=== PATIENT | male | born 1945 | race Caucasian/White ===

== ENCOUNTER 2022-01-29 08:59 | Outpatient (CLI) | payer MEDICARE, SELFPAY ==
--- NOTE | ~2022-01-29 | MR_ITS ---
EXAMINATION: MR lumbar spine wo con DATE: 01/29/2022 10:06 INDICATION: Dorsalgia, unspecified. TECHNIQUE: Magnetic resonance imaging (MRI) of the lumbar spine was performed without intravenous con trast. Sequences included sagittal T2-weighted FSE, sagittal T2-weighted FS FSE, sagittal T1-weighted FSE, and axial T2-weighted FSE. COMPARISON: Lumbar spine MRI 07/13/2019 FINDINGS: There is 17 degrees dextroscoliosis of lumbar spine. There is 11 mm retrolisthesis of L1 on L2, 7 mm retrolisthesis of L2 on L3, 7 mm retrolisthesis of L4 on L5, and 3 mm anterolisthesis of L5 on S1. There is severely decreased disc height at L1-L2 with endplate remodeling including 1/5 heigh t loss of L1 and L2 vertebral bodies. There is moderately decreased disc height at L2-L3, mildly decr eased disc height at L3-L4 and L4-L5, and severely decreased disc height at L5-S1 with endplate remod eling. The distal spinal cord signal intensity is normal. The conus medullaris is at L1. The followin g disc levels are specifically discussed: L1-L2: The disc is bulging and has an annular fissure. There is severe right facet joint osteoarthrit is. There is moderate right and severe left neural foraminal stenosis. There is mild central canal st enosis. There are changes of posterior decompression. L2-L3: The disc is bulging and has an annular fissure. There is severe bilateral facet joint osteoart hritis. There is moderate bilateral neural foraminal stenosis. There is moderate central canal stenos is. L3-L4: The disc is bulging and has an annular fissure. There is severe bilateral facet joint osteoart hritis. There is moderate bilateral neural foraminal stenosis. There is mild central canal stenosis. L4-L5: The disc is bulging and has an annular fissure. There is severe bilateral facet joint osteoart hritis. There is moderate bilateral neural foraminal stenosis. There is mild central canal stenosis. L5-S1: The disc is bulging and has an annular fissure. There is severe right and moderate left facet joint osteoarthritis. There is moderate right and mild left neural foraminal stenosis. There is mild central canal stenosis with posterior decompression. IMPRESSION: 1. Severe lumbar spondylosis, worsened from 07/13/2019. 2. Lumbar dextroscoliosis. Reviewed, dictated and finalized at location B.
== END 2022-01-29 09:00 | disposition home or self-care (01) ==
PROVIDERS: PCP Physician Assistant; Visit Provider Physician Assistant
DX: M47.896 Other spondylosis, lumbar region (principal)
CPT/HCPCS: 72148

== ENCOUNTER 2022-05-20 13:59 | Outpatient (CLI) | payer MEDICARE, SELFPAY ==
--- NOTE | ~2022-05-20 | CT_ITS ---
EXAMINATION: CT lumbar spine wo con DATE: 05/20/2022 14:31 INDICATION: Low back pain. Lumbar scoliosis. TECHNIQUE: Computed tomography (CT) of the lumbar spine was performed without intravenous contrast. A utomated exposure control and iterative reconstruction technique were employed. The dose-length produ ct was 550.56 mGy-cm. COMPARISON: CT lumbar spine 07/19/2018, MRI 01/29/2022 FINDINGS: Partially visualized are stones in the kidneys measuring up to at least 6 mm on the left. T here is 14 degrees dextroscoliosis of lumbar spine. There is 10 mm retrolisthesis of L1 on L2, 6 mm r etrolisthesis of L2 on L3, 8 mm anterolisthesis of L4 on L5, and 3 mm anterolisthesis of L5 on S1. Th ere is severely decreased disc height at L1-L2, L2-L3, and L5-S1 with endplate remodeling and mild ch ronic height loss of the vertebral bodies. There is mildly decreased disc height at L3-L4 and L4-L5. There are laminectomies at L1, L2, and L5. The following disc levels are specifically discussed: L1-L2: The disc is bulging. There is severe bilateral facet joint osteoarthritis. There is moderate r ight and severe left neural foraminal stenosis. There is mild central canal stenosis with posterior d ecompression. L2-L3: The disc is bulging. There is severe bilateral facet joint osteoarthritis. There is moderate b ilateral neural foraminal stenosis. There is mild central canal stenosis with posterior decompression . L3-L4: The disc is bulging. There is severe bilateral facet joint osteoarthritis. There is moderate b ilateral neural foraminal stenosis. There is mild central canal stenosis. L4-L5: The disc is bulging. There is severe bilateral facet joint osteoarthritis. There is moderate b ilateral neural foraminal stenosis. There is mild central canal stenosis with posterior decompression . L5-S1: The disc is bulging. There is severe right and moderate left facet joint osteoarthritis. There is moderate right and mild left neural foraminal stenosis. There is mild central canal stenosis with posterior decompression. IMPRESSION: 1. Severe lumbar spondylosis, stable from 01/29/2022 and worsened from 07/19/2018. 2. Lumbar dextroscoliosis. Reviewed, dictated and finalized at location A. IMPRESSION: 1. Severe lumbar spondylosis, stable from 01/29/2022 and worsened from 07/19/2018 . 2. Lumbar dextroscoliosis.
== END 2022-05-20 14:00 | disposition home or self-care (01) ==
PROVIDERS: PCP Physician Assistant; Visit Provider Neurological Surgery
DX: M41.9 Scoliosis, unspecified (principal); M47.896 Other spondylosis, lumbar region
CPT/HCPCS: 72131

== ENCOUNTER 2022-06-26 07:10 | Outpatient (CLI) | payer MEDICARE, SELFPAY ==
--- NOTE | ~2022-06-26 | MR_ITS ---
EXAMINATION: MR cervical spine wo con DATE: 06/26/2022 08:19 INDICATION: Weakness of the distal arms and legs TECHNIQUE: Magnetic resonance imaging (MRI) of the cervical spine was performed without intravenous c ontrast. Sequences included sagittal T2-weighted FSE, sagittal T2-weighted FS FSE, sagittal T1-weight ed FSE, axial MERGE and axial T2-weighted FSE. COMPARISON: None FINDINGS: Evaluation mildly limited by motion artifact or blurring to some degree on all sequences within sever al repeated axial sequences. One-2 mm retrolisthesis C3 on C4. Bone alignment is otherwise normal. V ertebral body heights are normal. Moderate to severe disc height loss at C4-C5 and T2-T3. Moderate di sc height loss at C3-C4, C5-C6 and T1-T2. Mild disc height loss at C2-C3 and C6-C7. Associated mild f ibrovascular degenerative endplate changes at C4-C5 and C5-C6. Marrow signal is otherwise unremarkabl e. Cord signal intensity is normal. Cervical soft tissues are unremarkable. The following disc levels are specifically discussed: C2-C3: The disc does not extend beyond the endplate margin. There is mild bilateral uncovertebral riya nt osteoarthritis. There is mild right and moderate left facet joint osteoarthritis. There is mild le ft neural foraminal stenosis. There is no central canal stenosis. C3-C4: Disc is bulging. There is severe bilateral uncovertebral joint osteoarthritis. There is modera te left and severe right facet joint osteoarthritis. There is moderate to severe right and severe lef t neural foraminal stenosis. There is severe central canal stenosis measuring 7 mm AP in the mid sagi ttal plane and deformity cord with effacement of the surrounding CSF signal. C4-C5: Right central to foraminal zone disc extrusion with disc material extending cranial and caudal to the level of the endplates. There is moderate left and severe right uncovertebral joint osteoarth ritis. There is moderate left and severe right facet joint osteoarthritis. There is moderate to sever e bilateral neural foraminal stenosis. There is moderate to severe central canal stenosis which measu res 8 mm AP in the mid sagittal plane. There is indentation of the ventral surface of the cord with r ight-sided predominance. C5-C6: Eccentric to the left posterior disc osteophyte complex. There is severe bilateral uncovertebr al joint osteoarthritis. There is mild right and moderate left facet joint osteoarthritis. There is m oderate right and moderate to severe left neural foraminal stenosis. There is mild central canal sten osis measuring 10 mm AP in the mid sagittal plane and with mild indention of the left ventral surface of the cord. C6-C7: Annular fissure and disc extrusion with disc material extending a few millimeters cephalad and caudal to the level of the endplates extending from foraminal zone to foraminal zone. There is moder ate bilateral, left greater than right uncovertebral joint osteoarthritis. There is severe bilateral facet joint osteoarthritis. There is moderate bilateral neural foraminal stenosis. There is mild cent ral canal stenosis. C7-T1: The disc does not extend beyond the endplate margin. There is no uncovertebral joint osteoarth ritis. There is moderate right and severe left facet joint osteoarthritis. There is mild bilateral ne ural foraminal stenosis. There is no central canal stenosis. IMPRESSION: 1. Severe cervical spondylosis. Reviewed, dictated and finalized at location B.
== END 2022-06-26 07:11 | disposition home or self-care (01) ==
PROVIDERS: PCP Physician Assistant; Visit Provider Neurological Surgery
DX: R29.898 Other symptoms and signs involving the musculoskeletal system (principal); M47.892 Other spondylosis, cervical region
CPT/HCPCS: 72141

== ENCOUNTER 2022-09-17 11:33 | Observation (INO) | payer MEDICARE, SELFPAY ==
[2022-09-17] VITALS (13 sets, daily range): BP systolic 87–137; BP diastolic 53–68; PULSE 63–148; RESP 15–22; TEMP 36.3–36.4; O2SAT 95–100; BMI 26.1
--- NOTE | ~2022-09-17 | XR_ITS ---
Supine views of the abdomen Clinical history: Fecal impaction Findings: Bowel gas pattern is nonspecific. Large amount of stool noted in the distal transverse colo n, descending colon, and sigmoid colon/rectum. No evidence for obstruction or free air. No abnormal m ass lesion or calcification is seen. Mild degenerative changes in the lumbar spine are noted. Severe osteoarthritis of the left hip joint present. Impression: Large amount of stool in the distal half of the colon, as detailed above. Reviewed, dictated and finalized at location M. L MARKETING INTERN Impression: Large amount of stool in the distal half of the colon, as detailed above.
--- NOTE | ~2022-09-17 | XR_ITS ---
EXAMINATION: XR abdomen/kub 1V DATE: 09/19/2022 13:17 INDICATION: Small bowel obstruction. TECHNIQUE: A supine view of the abdomen was obtained. COMPARISON: CT abdomen and pelvis 09/17/2022 FINDINGS: There are no dilated loops of bowel. There is a small volume of stool in the colon. There a re stones in right kidney measuring up to 5 mm. There are stones in left kidney measuring up to 8 mm. IMPRESSION: 1. Nonobstructive bowel gas pattern. 2. Bilateral kidney stones. Reviewed, dictated and finalized at location A. ARY AIDE
--- NOTE | ~2022-09-17 | US_ITS ---
EXAMINATION: US venous doppler [facility] DATE: 09/18/2022 10:28 INDICATION: Lower limb edema. Left lower limb pain. TECHNIQUE: Grayscale ultrasound images without and with compression and Doppler ultrasound images of the bilateral lower extremity veins were obtained. COMPARISON: None. FINDINGS: The visualized portions of right common femoral vein, profunda (deep) femoral vein, femoral vein, pop liteal vein, peroneal veins, posterior tibial veins, and greater saphenous vein outflow are patent. The visualized portions of left common femoral vein, profunda femoral vein, femoral vein, popliteal v ein, peroneal veins, posterior tibial veins, and greater saphenous vein outflow are patent. IMPRESSION: 1. No deep venous thrombosis. Reviewed, dictated and finalized at location A. F MECHANICAL OFFICER
--- NOTE | ~2022-09-17 | CT_ITS ---
EXAMINATION: CT abdomen pelvis w con DATE: 09/17/2022 14:32 INDICATION: Diarrhea. Nausea and vomiting. TECHNIQUE: Computed tomography (CT) of the abdomen and pelvis was performed with 100 mL Omnipaque 350 intravenous contrast. Automated exposure control and iterative reconstruction technique were employe d. The dose-length product was 681.33 mGy-cm. COMPARISON: CT abdomen and pelvis 09/14/2019 FINDINGS: The visualized portions of the lung bases demonstrate mild atelectasis. There is mild eleva tion of right hemidiaphragm. Calcified pulmonary nodules and calcified hilar and mediastinal lymph no prachi are consistent with old granulomatous disease. No pleural effusion. The heart size is normal. The re are coronary artery calcifications. No pericardial effusion. The liver is normal. Calcifications i n the spleen are consistent with old granulomatous disease. There are gallstones in the gallbladder, which is distended. The pancreas and adrenal glands are normal. There is cortical thinning of the kid neys. There are 4 stones in right kidney measuring up to 7 mm. There are 6 stones in left kidney alex uring up to 8 mm. There are cysts in left kidney measuring up to 5 mm. Stool distends the rectum. The re is a large volume of stool in the colon. The appendix is normal. The prostate is moderately enlarg ed. There are no pathologically enlarged lymph nodes. There is no free intraperitoneal fluid. There i s moderate stenosis of celiac axis and superior mesenteric artery. There is moderate stenosis of the origin of inferior mesenteric artery. There is severe lumbar spondylosis. Lumbar dextroscoliosis is n oted. There is severe osteoarthritis of the hips. There is a large left hip joint effusion with iliop soas bursitis. IMPRESSION: 1. Cholelithiasis. Gallbladder distention may be secondary to fasting or acute cholecystitis. Correla te with physical exam. 2. Large volume of stool in the colon with distention of the rectum. Reviewed, dictated and finalized at location A. CTOR OF OUTPATIENT SERVICES IMPRESSION: 1. Cholelithiasis. Gallbladder distention may be secondary to fasting or acute cholecystitis. Correlate with physical exam. 2. Large volume of stool in the colon with distention of the rectum.
--- NOTE | 2022-09-17 11:53 | ECG_ITS ---
Measurements Intervals [place] Rate: 119 P: ID: 0 QRS: -3 QRSD: 113 T: 17 QT: 321 QTc: 452 Interpretive Statements SUPRAVENTRICULAR TACHYCARDIA INCOMPLETE LEFT BUNDLE BRANCH BLOCK ABNORMAL ECG NO PREVIOUS ECG AVAILABLE FOR COMPARISON Electronically Signed On 09-17-2022 12:11:30 AUTOMOBILE BODY REPAIR SUPERVISOR by Jasbir Flores D.O.
--- NOTE | 2022-09-17 12:02 | ED.NAVMDI ---
HPI - Nausea/Vomiting/Diarrhea General Chief complaint: Nausea/Vomiting/Diarrhea Stated complaint: back pain with diarrhea Time Seen by Provider: 09/17/22 12:02 Source: patient Mode of arrival: EMS Limitations: dementia History of Present Illness HPI Narrative: Patient is a 77-year-old male with a history of Alzheimer's dementia, hypertension, hyperlipidemia, presenting to the emergency department for evaluation of generalized weakness, diarrhea. Patient is currently alert and oriented to person and place. He denies any current pain. Patient states that he has been having numerous episodes of watery stools. Family does also provide much of the history, I spoke personally with the patient's significant other and daughter. Patient has had increasing weakness over the past several weeks and patient's daughter has been looking for long-term placement for him as he is not safe living with his girlfriend at this point. He has had falls recently at home but no noted head trauma. Patient has had no reported headache, nausea or vomiting. No reported abdominal pain but did report back pain. He has had multiple episodes of watery stool and girlfriend felt like there was blood present in the stool today. He is not on any chronic anticoagulation. No recent sick contacts. Patient family members also states that he has been increasingly weak, sleeping multiple hours in the day, decreased oral intake. Related Data Home Medications Medication Instructions Recorded Confirmed aspirin 81 mg tablet,delayed 81 mg PO DAILY 09/20/19 08/11/22 release (Adult Low Dose Aspirin) oxybutynin chloride 5 mg mg PO 09/17/22 tablet,extended release 24 hr tamsulosin 0.4 mg capsule mg PO 09/17/22 Allergies Allergy/AdvReac Type Severity Reaction Status Date / Time codeine AdvReac Unknown Nausea Verified 09/17/22 11:47 Review of Systems Review of Systems: CONSTITUTIONAL: Denies fever, chills, or sweats. EYES: Denies visual changes, redness, or discharge. ENT: Denies rhinorrhea, congestion, sore throat, or otalgia. CARDIOVASCULAR: Denies chest pain, palpitations, or edema. RESPIRATORY: Denies cough or dyspnea. GASTROINTESTINAL: Denies abdominal pain, nausea, vomiting, reports diarrhea GENITOURINARY: Denies dysuria or hematuria. SKIN: Denies rash or itching. MUSCULOSKELETAL: Reports back pain, reports this is chronic for him NEUROLOGIC: Denies headache, numbness, reports generalized weakness PMFSH Past Medical History Medical History Acute kidney injury COPD (chronic obstructive pulmonary disease) Hyperlipidemia Hypertension Kidney stone Lumbar scoliosis Osteoarthritis Prostate cancer Currently under surveillance. Prostate cancer Restless leg syndrome Sepsis Tobacco dependence Surgical History Surgical History History of orthopedic surgery Bilateral elbow surgery. Status post left knee replacement Family History Family History Father Cerebrovascular accident Family history of coronary artery disease Alcoholism Mother Family history of coronary artery disease Sibling Diabetes mellitus Other Family history of cardiovascular disease Social History Social History Social History: The patient lives in [place]. He has smoked 1 to 2 packs of cigarettes per day since age of 7. He denies alcohol and drug abuse. His emergency contact is his daughter Roxy Adams. He wishes to be a full code. Smoking packs per day: 2 Smoking cigarettes per day: 40.0 Years smoked: 65 Smoking pack-years: 130.00 Smoking status: Current every day smoker Tobacco type: cigarettes Second hand tobacco smoke exposure: Yes Alcohol intake: never Substance use: never Lack of Transportation: No Lack of Food: [facility]
[2022-09-17 12:23] LABS: Add Urine Microscopic? YES; Appearance Urine Clear (Clear); Bilirubin Urine Negative (Negative); Blood Urine Trace-Intact (Negative); Color Urine Yellow (Yellow); Glucose Urine UA Negative (Negative); Ketones Urine Negative (Negative); Leukocyte Esterase Ur Negative LEU/UL (Negative); Nitrate Urine Negative (Negative); Protein Urine 1+ mg/dL (Negative); Specific Grav Ur 1.015 (1.001-1.035); Urobilinogen Urine 0.2 mg/dL (<2.0)
[2022-09-17 12:39] LABS: Mucus Urine Rare /lpf; Squamous Epithelial Cell Urine Rare /hpf (Few); WBC Urine 0-3 /hpf
[2022-09-17] MEDS: SODIUM CHLORIDE 0.9% IV 1,000 ML 999 ML IV CONT ×2 (12:55)
--- NOTE | 2022-09-17 13:02 | ECG_ITS ---
Measurements Intervals [place] Rate: 63 P: 63 [place]: 204 QRS: 11 QRSD: 97 T: 37 QT: 400 QTc: 410 Interpretive Statements SINUS RHYTHM BORDERLINE AV CONDUCTION DELAY BORDERLINE ECG COMPARED TO ECG 09/17/2022 11:57:35 SINUS RHYTHM NOW PRESENT Electronically Signed On 09-17-2022 13:46:14 AUTOCAD DESIGNER by Jasbir Flores D.O.
[2022-09-17 13:08] LABS: Basophils Percent Auto 0.4 % (0.2-1.2); Eosinophils Percent Auto 0.2 % (0-4.4); Hematocrit 35.8 % (42.0-52.0); Immature Granulocyte Absolute 0.03 K/mm3 (0.00-0.031); Immature Granulocyte Percent A 0.4 % (0-0.5); Lymphocytes Absolute Auto 0.75 K/mm3 (0.9-3.2); Mean Corpuscular HGB Conc 33.5 g/dl (32-36); Mean Corpuscular Hemoglobin 33.5 pg (26-34); Mean Platelet Volume 8.4 fl (7.4-10.4); Monocytes Absolute Auto 0.7 K/mm3 (0.1-0.6); Neutrophils Absolute Auto 6.9 K/mm3 (1.3-6.7); Platelet Count Result 168 k/mm3 (150-375); Red Blood Count 3.58 M/mm3 (4.6-6.20); Red Cell Distribution Width 11.7 % (11.5-14.5); White Blood Count 8.4 K/mm3 (4.5-10.0)
[2022-09-17 13:21] LABS: Alanine Aminotransferase 19 U/L (6-50); Albumin Level 3.9 g/dL (3.5-5.1); Alkaline Phosphatase 86 U/L (38-126); Anion Gap 5 mmol/L (8-16); Aspartate Amino Transferase 24 U/L (17-59); Bilirubin,Total 0.5 mg/dL (0.2-1.3); Blood Urea Nitrogen 29 mg/dL (9-20); Calcium 8.9 mg/dL (8.4-10.2); Carbon Dioxide 27 mmol/L (22-30); Chloride 101 mmol/L (98-107); Estimated CRCL calculation 41 ml/min; Estimated Glomerular Filt Rate 49; Glucose 110 mg/dL (65-110); Lipase 40 U/L (23-300); Potassium 4.1 mmol/L (3.4-5.0); Sodium 133 mmol/L (137-145)
[2022-09-17 13:26] LABS: Lactic Acid Reflex 1.1 mmol/L (0.7-2.0)
[2022-09-17 13:38] LABS: Troponin I < 0.012 ng/mL (0.000-0.034)
[2022-09-17 13:49] LABS: Influenza A QL RT-PCR Negative (Negative); Influenza B QL RT-PCR Negative (Negative); RSV RNA, RT-PCR Negative (Negative); SARS-CoV-2 RNA PCR Negative
[2022-09-17 14:17] LABS: INR 1.2; Prothrombin Time 14.3 Seconds (11.1-14.7)
[2022-09-17 14:18] LABS: Partial Thromboplastin Time 34.3 SECONDS (22.3-36.8)
--- NOTE | 2022-09-17 15:00 | PM.IMHP ---
H&P: HPI History of Present Illness Date/Time: 09/17/22 15:00 Chief Complaint: Weakness and diarrhea. Narrative: This 77-year-old male smoker with dementia, hypertension, COPD, prostate cancer, and chronic back and left hip pain who presented to the emergency department from home for evaluation of weakness and diarrhea. He is able to provide some history however his significant other and daughter at bedside provide additional information, with the patient's permission. He has had ongoing issues with chronic left back pain radiating into the left hip and upper thigh for quite some time. He has been evaluated by neuro surgery and due to his comorbidities they did not feel he would be a good candidate for surgery. More recently he has been started on hydrocodone by his primary care provider which seems to take the edge off for a couple of hours only. He and his family members report that he is in nearly constant pain and that he has gotten progressively more weak to the point where he can barely even get up and walk. Significant other states that he is in bed almost all the time and is either sleeping or in pain. He has difficulties describing the pain but when it is particularly severe it is sharp and shooting in nature and seems to be centered on the left lateral hip. In any event his significant other has been his primary spring former machine and it is getting to the point that she is neglecting her own health and they are worried that he may need placement in a facility. Today they decided to bring him in as he started having diarrhea at about 05:00 and significant other noticed that there was some bright red blood on the shower chair after the bowel movements. He denies lightheadedness, dizziness, focal weakness, paresthesias, vertigo, facial droop, difficulty swallowing and speaking, chest pain, pleuritic pain, shortness a breath, abdominal on epigastric pain, vomiting, and dysuria. No saddle anaesthesia. Blood pressure on arrival to the emergency department was 93/53 but has improved with IV fluid boluses. It is also noted that his heart rate was 148 on arrival and it looks like he was in SVT but converted to sinus after receiving fluid boluses. It does not sound as though he has been eating and drinking very well due to the pain and sleeping from the pain medications. He looks a little dry by labs and on exam. Hemoglobin is little over gram lower than what it was within the last several months. CT of the abdomen pelvis showed a large volume of stool in the colon with distention of the rectum. With further questioning he reports that he takes stool softeners at night but they have never really helped. They have not tried any other medications to move his bowels. Review of Systems Review of Systems: Negative except for as per HPI. [facility] Past Medical History Medical History Chronic kidney disease Chronic obstructive pulmonary disease Dementia Hyperlipidemia Hypertension Kidney stone Lumbar scoliosis Osteoarthritis Prostate cancer Currently under surveillance. Restless leg syndrome Tobacco dependence Surgical History Surgical History History of orthopedic surgery Bilateral elbow surgery. Status post left knee replacement Family History Family History Father Cerebrovascular accident Family history of coronary artery disease Alcoholism Mother Family history of coronary artery disease Sibling Diabetes mellitus Other Family history of cardiovascular disease Social History Social History Social History: The patient lives in [place]. He has smoked 1 to 2 packs of cigarettes per day since age of 7. He denies alcohol and drug abuse. His emergency contact is his daughter Roxy Adams. He wishes to be a full cod
[2022-09-17 16:41] LABS: Troponin I < 0.012 ng/mL (0.000-0.034)
[2022-09-17] MEDS: PANTOPRAZOLE SODIUM IV 40 MG VIAL IV PUSH (16:41)
--- NOTE | 2022-09-17 17:45 | ADMGEN ---
This patient, Andrew Starr, was admitted to Medical Room 348-01. Patient/family oriented to hospital policies and general routines including ID bracelet, bed and alarms, visiting hours, pain management, procedures, bathroom and other care routines, personal items, smoking policy, room service/diet, and visiting hours. Information on how to activate the Rapid Response Team has been discussed. Patient/Family are encouraged to report perceived risks to care and to ask questions if they do not understand what they are told or what they should do.
[2022-09-17] MEDS: LACTATED RINGERS 1,000 ML 125 ML IV CONT (17:47)
[2022-09-17] MEDS: ACETAMINOPHEN 325 MG TABLET 650 MG PO (17:48)
[2022-09-17] MEDS: ONDANSETRON INJ 4 MG/2 ML VIAL IV PUSH (20:22)
[2022-09-17] MEDS: clonazePAM (*CRX) 0.5 MG TABLET 1 MG PO (21:38)
[2022-09-17] MEDS: HYDROcodone/acetaminophen (*CRX) 10-325 MG TABLET 1 TAB PO (21:39)
[2022-09-17 21:49] LABS: Troponin I < 0.012 ng/mL (0.000-0.034)
[2022-09-17 23:02] LABS: Hematocrit 31.6 % (42.0-52.0); Hemoglobin 10.7 g/dL (14.0-18.0)
[2022-09-17 23:20] LABS: CRP 1.2 mg/dL (<1.0); Creatine Kinase 71 U/L (55-170)
[2022-09-17] MEDS: PRAMIPEXOLE 0.25 MG TABLET PO (23:30)
[2022-09-17] MEDS: TAMSULOSIN HCL 0.4 MG CAPSULE PO (23:30)
[2022-09-18] VITALS (12 sets, daily range): BP systolic 109–153; BP diastolic 51–72; PULSE 54–74; RESP 18–20; TEMP 36.5–36.6; O2SAT 96–97; BMI 26.1
[2022-09-18] MEDS: HYDROcodone/acetaminophen (*CRX) 10-325 MG TABLET 1 TAB PO ×4 (03:54→23:04)
[2022-09-18 05:46] LABS: Hematocrit 31.1 % (42.0-52.0); Hemoglobin 10.4 g/dL (14.0-18.0); Mean Corpuscular HGB Conc 33.4 g/dl (32-36); Mean Corpuscular Hemoglobin 33.5 pg (26-34); Mean Corpuscular Volume 100.3 fl (80-100); Mean Platelet Volume 8.4 fl (7.4-10.4); Platelet Count Result 125 k/mm3 (150-375); Red Cell Distribution Width 11.8 % (11.5-14.5); White Blood Count 5.8 K/mm3 (4.5-10.0)
[2022-09-18 05:56] LABS: Potassium 4.1 mmol/L (3.4-5.0)
[2022-09-18 06:00] LABS: Alanine Aminotransferase 16 U/L (6-50); Alkaline Phosphatase 71 U/L (38-126); Anion Gap 0 mmol/L (8-16); Aspartate Amino Transferase 19 U/L (17-59); Bilirubin,Total 0.4 mg/dL (0.2-1.3); Blood Urea Nitrogen 22 mg/dL (9-20); Calcium 8.1 mg/dL (8.4-10.2); Carbon Dioxide 28 mmol/L (22-30); Chloride 102 mmol/L (98-107); Estimated CRCL calculation 44 ml/min; Estimated Glomerular Filt Rate 53; Glucose 87 mg/dL (65-110); Magnesium 1.9 mg/dL (1.6-2.3); Sodium 130 mmol/L (137-145)
[2022-09-18] MEDS: LACTATED RINGERS 1,000 ML 125 ML IV CONT ×2 (08:12→23:06)
[2022-09-18] MEDS: DOCUSATE SODIUM 100 MG CAPSULE PO (08:20)
[2022-09-18] MEDS: polyethylene glycoL 3350 17 GM POWD.PACK PO (08:20)
[2022-09-18] MEDS: LIDOCAINE 5% PATCH 1 PATCH TRANSDERM (08:20)
[2022-09-18] MEDS: BISACODYL 5 MG TABLET EC 10 MG PO ×2 (08:20→17:10)
[2022-09-18] MEDS: CITALOPRAM HYDROBROMIDE 10 MG TABLET PO (08:20)
--- NOTE | 2022-09-18 09:25 | WPDGICN ---
Assessment and Plan Assessment and plan (1) Diarrhea: Code(s): R19.7 - Diarrhea, unspecified Status: Acute Assessment and Plan: Although he has been having diarrhea, judging by the CT scan, I suspect that he is having incontinence due to fecal impaction. I have ordered stool cultures but I suspect they will be negative. We will add Dulcolax to his regimen of stool softeners. He I will recheck KUB in the morning. If he has not had improvement we may need to consider removal of impaction under sedation. (2) Dehydration: Code(s): E86.0 - Dehydration Status: Acute Assessment and Plan: There is concern about dehydration. His urine specific gravity is 1.015 BUN is 22, which is actually improved over a couple of years ago when he was in the 40s. GI Consult Note Consult date/time: 09/18/22 09:25 HPI: Andrew Starr is a 77 year old male Was brought to the emergency room by his family. He has been having a great deal of diarrhea stools for the past couple of days. The patient's family also stated that he had been weak. Patient self is a poor historian. There was no evidence of bleeding but he did have a positive stool Hemoccult in the emergency room. He had not recently been on antibiotics. CT scan actually shows a large amount of stool in the colon and rectum. Review of Systems Review of Systems: All systems reviewed & are unremarkable except as noted in HPI and below PMFSH Past Medical History Medical History Chronic kidney disease Chronic obstructive pulmonary disease Dementia Hyperlipidemia Hypertension Kidney stone Lumbar scoliosis Osteoarthritis Prostate cancer Currently under surveillance. Restless leg syndrome Tobacco dependence Surgical History Surgical History History of orthopedic surgery Bilateral elbow surgery. Status post left knee replacement Family History Family History Father Cerebrovascular accident Family history of coronary artery disease Alcoholism Mother Family history of coronary artery disease Sibling Diabetes mellitus Other Family history of cardiovascular disease Social History Social History Social History: The patient lives in [place]. He has smoked 1 to 2 packs of cigarettes per day since age of 7. He denies alcohol and drug abuse. His emergency contact is his daughter Roxy Adams. He wishes to be a full code. Smoking packs per day: 2 Smoking cigarettes per day: 40.0 Years smoked: 65 Smoking pack-years: 130.00 Smoking status: Current every day smoker Tobacco type: cigarettes Second hand tobacco smoke exposure: Yes Alcohol intake: never Substance use: never Lack of Transportation: No Lack of Food: Never True Current Housing: I Have Housing Concerned About Future Housing: No Difficulty Paying Gas/Electric Bills: No Difficulty Paying for Meds: No Currently Unemployed: No Education: High School Diploma/GED Difficulty w/ Childcare or Family Care: No Spiritual care concerns: No Meds Home Medications and Allergies Home Medications Medication Instructions Recorded Confirmed Type aspirin 81 mg tablet,delayed 81 mg PO DAILY 09/20/19 09/17/22 History release (Adult Low Dose Aspirin) atorvastatin 20 mg tablet (Lipitor) 20 mg PO QAM #90 tabs 10/04/21 09/17/22 Rx lisinopril 20 1 tablet PO DAILY #90 tabs 01/03/22 09/17/22 Rx mg-hydrochlorothiazide 12.5 mg tablet citalopram 10 mg tablet 10 mg PO DAILY #30 tabs 06/30/22 09/17/22 Rx hydrocodone 10 mg-acetaminophen 1 tablet PO Q6H PRN pain #120 tabs 08/11/22 09/17/22 Rx 325 mg tablet amlodipine 10 mg tablet 10 mg PO DAILY #90 tabs 08/13/22 09/17/22 Rx pramipexole 0.25 mg tablet 0.25 mg PO QHS #90 tab
--- NOTE | 2022-09-18 12:58 | PC.NURSE ---
Pt does not wish to be intubated. ok with it. Second nurse confirmed changes.
--- NOTE | 2022-09-18 15:54 | PM.IMPN ---
Progress Note: A&P Assessment and Plan (1) Paroxysmal supraventricular tachycardia: Code(s): I47.1 - Supraventricular tachycardia Status: Acute (2) Hypotension: Code(s): I95.9 - Hypotension, unspecified Status: Acute (3) Constipation: Code(s): K59.00 - Constipation, unspecified Status: Acute (4) Overflow diarrhea: Code(s): R19.7 - Diarrhea, unspecified Status: Acute (5) Guaiac + stool: Code(s): R19.5 - Other fecal abnormalities Status: Acute (6) Chronic low back pain: Code(s): M54.50 - Low back pain, unspecified; G89.29 - Other chronic pain Status: Acute (7) Chronic left hip pain: Code(s): M25.552 - Pain in left hip; G89.29 - Other chronic pain Status: Acute (8) Generalized weakness: Code(s): R53.1 - Weakness Status: Acute (9) Dehydration: Code(s): E86.0 - Dehydration Status: Acute (10) Hyponatremia: Code(s): E87.1 - Hypo-osmolality and hyponatremia Status: Acute (11) Chronic kidney disease: Code(s): N18.9 - Chronic kidney disease, unspecified Status: Acute (12) Chronic obstructive pulmonary disease: Code(s): J44.9 - Chronic obstructive pulmonary disease, unspecified Status: Acute (13) Dementia: Code(s): F03.90 - Unspecified dementia, unspecified severity, without behavioral disturbance, psychotic disturbance, mood disturbance, and anxiety Status: Acute (14) Tobacco abuse: Code(s): Z72.0 - Tobacco use Status: Acute Plan The patient presented to the ED via EMS from home for evaluation of diarrhea and weakness. On arrival his blood pressure was 93/53 and he was he was tachycardic with an EKG showing SVT with a rate in the 140s. He was given fluid boluses with improvement in his blood pressure and buddhism of sinus rhythm. He is dry on exam and labs show mild hyponatremia; he will be judiciously hydrated overnight. His diarrhea today's most likely overflow diarrhea given a large volume of stool noted in the colon with distension of the rectum. He has some blood in his stool this morning and the stool was guaiac positive in the ED, may very well be due to hemorrhoids from ongoing constipation. Constipation has been worse recently, likely due to the addition of narcotics. Continue stool softeners and start MiraLax. His hemoglobin and hematocrit are a bit lower than what he typically runs and that will be repeated this evening to ensure it is stable. Antihypertensives on hold for now given low blood pressures on arrival. Continue pramipexole, citalopram, and hydrocodone as needed for pain. Consider other modalities to help with pain such as therapy, topicals, anti-inflammatories, or gabapentin or the like. PT/OT consulted as he is weak and is to the point where he is having difficulties even getting up out of bed. This weakness does not seem to be an acute onset and is more likely related to progressive weakness and debility as he is limited by his pain. Care coordination consulted as family members feel that he needs placement due to the fact that they are having difficulties caring for him at home. His home medications will be reviewed and resumed as appropriate. Labs, imaging, vital signs, an EKG were all personally reviewed. 09/18/2022 interval history: 77-year-old male was brought to the emergency with weakness and loose bowel movement however CT scan of abdomen showed fecal impaction seen by GI started the patient on stool softener and will monitor there is no improvement will do KUB and may need Dulcolax suppository, patient's presented state patient is a very weak, difficult time with ambulation will have a PT OT evaluate the patient patient will benefit going to acute rehab. Subjective Date/time seen: 09/18/22 15:54 HPI-Narrative: This 77-year-old male smoker with dementia, hypertension, COPD, prostate cancer, and chronic back and left hip pain
[2022-09-18] MEDS: TAMSULOSIN HCL 0.4 MG CAPSULE PO (20:44)
[2022-09-18] MEDS: clonazePAM (*CRX) 0.5 MG TABLET 1 MG PO (20:44)
[2022-09-18] MEDS: PRAMIPEXOLE 0.25 MG TABLET PO (20:44)
[2022-09-19] VITALS (15 sets, daily range): BP systolic 129–160; BP diastolic 53–92; PULSE 50–65; RESP 18; TEMP 36.2–36.6; O2SAT 94–97
[2022-09-19] MEDS: HYDROcodone/acetaminophen (*CRX) 10-325 MG TABLET 1 TAB PO ×3 (05:10→20:15)
[2022-09-19] MEDS: LACTATED RINGERS 1,000 ML 125 ML IV CONT ×3 (05:11→20:16)
[2022-09-19 06:29] LABS: Hematocrit 30.5 % (42.0-52.0); Hemoglobin 10.2 g/dL (14.0-18.0); Mean Corpuscular HGB Conc 33.4 g/dl (32-36); Mean Corpuscular Hemoglobin 33.9 pg (26-34); Mean Corpuscular Volume 101.3 fl (80-100); Mean Platelet Volume 8.5 fl (7.4-10.4); Platelet Count Result 127 k/mm3 (150-375); Red Blood Count 3.01 M/mm3 (4.6-6.20); Red Cell Distribution Width 11.8 % (11.5-14.5); White Blood Count 6.2 K/mm3 (4.5-10.0)
[2022-09-19 06:41] LABS: Anion Gap 2 mmol/L (8-16); Blood Urea Nitrogen 23 mg/dL (9-20); Calcium 7.8 mg/dL (8.4-10.2); Carbon Dioxide 28 mmol/L (22-30); Chloride 105 mmol/L (98-107); Estimated CRCL calculation 41 ml/min; Estimated Glomerular Filt Rate 49; Glucose 83 mg/dL (65-110); Magnesium 1.9 mg/dL (1.6-2.3); Phosphorus 3.3 mg/dL (2.5-4.5); Potassium 4.1 mmol/L (3.4-5.0); Sodium 135 mmol/L (137-145)
[2022-09-19] MEDS: BISACODYL 5 MG TABLET EC 10 MG PO (09:26)
[2022-09-19] MEDS: DOCUSATE SODIUM 100 MG CAPSULE PO (09:26)
[2022-09-19] MEDS: polyethylene glycoL 3350 17 GM POWD.PACK PO (09:26)
[2022-09-19] MEDS: LIDOCAINE 5% PATCH 3 PATCH TRANSDERM (09:26)
[2022-09-19] MEDS: CITALOPRAM HYDROBROMIDE 10 MG TABLET PO (09:26)
--- NOTE | 2022-09-19 15:36 | WPDGIPROGNO ---
Progress Note: A&P Assessment and Plan (1) Constipation: Code(s): K59.00 - Constipation, unspecified Status: Acute Assessment and Plan: He has had a large bowel movement and it appears that his impaction has resolved. From my perspective he can be transferred or discharged. I think he should stay on a daily dose of MiraLax. (2) Overflow diarrhea: Code(s): R19.7 - Diarrhea, unspecified Status: Acute Assessment and Plan: The diarrhea was clearly due to the fact that he had a fecal impaction which has resolved. (3) Dehydration: Code(s): E86.0 - Dehydration Status: Acute Assessment and Plan: This is no longer an issue. He is tolerating regular diet Subjective Date/time seen: 09/19/22 15:36 He had 1 large bowel movement this morning. A KUB did show a normal gas pattern. fecal impaction is no longer seen. There is only a small amount of stool in the colon per the exam. We can stop the Dulcolax tablets. From my perspective he can be discharged or transferred. I would keep him on MiraLax daily. Exam Const: General: alert and average body habitus Nutritional Appearance: average body habitus Orientation/consciousness: oriented to person and patient oriented x3 Resp: Auscultation: clear to auscultation bilaterally Cardio: Rhythm: regular rhythm GI: Auscultation: normal bowel sounds Neuro: General: oriented to person and patient oriented x3 Objective Data Vital Signs Vital Signs: Vital Signs - 24 hr 09/18/22 16:00 09/18/22 21:02 09/18/22 21:04 Temperature 36.6 C Pulse Rate 60 60 Respiratory Rate 18 Blood Pressure 153/62 H 123/60 Pulse Oximetry 97 09/18/22 21:07 09/18/22 20:00 09/19/22 00:00 Temperature Pulse Rate 74 58 L 56 L Respiratory Rate Blood Pressure 147/72 H Pulse Oximetry 09/19/22 04:00 09/19/22 05:19 09/19/22 08:30 Temperature 36.6 C Pulse Rate 56 L 58 L Respiratory Rate 18 Blood Pressure 150/67 H 152/61 H Pulse Oximetry 94 09/19/22 08:30 09/19/22 08:31 09/19/22 08:32 Temperature Pulse Rate 60 Respiratory Rate Blood Pressure 145/66 H 148/92 H Pulse Oximetry 97 09/19/22 08:00 09/19/22 12:00 09/19/22 13:45 Temperature 36.2 C L Pulse Rate 53 L 61 60 Respiratory Rate 18 Blood Pressure 129/53 L Pulse Oximetry 96 Intake/Output Intake/Output: Intake & Output 09/16/22 09/17/22 09/18/22 09/19/22 23:59 23:59 23:59 23:59 Intake Total 2100 3340 2730 Output Total 900 Balance 2100 2440 2730 Meds/Results Medications: Active Medications Generic Name Dose Route Start Last Admin Trade Name Freq PRN Reason Stop Dose Admin Acetaminophen 650 mg 09/17/22 22:24 Acetaminophen 325 Mg Tablet PO Q6H PRN Mild Pain (1-3) or Fever Hydrocodone Bitart/Acetaminophen 1 tab 09/17/22 21:21 09/19/22 12:39 Hydrocodone/Acetaminophen (*Crx) 10-325 Mg Tablet PO 1 tab Q6H PRN Administration Pain Rated 4-6 Bisacodyl 10 mg 09/18/22 09:00 09/19/22 09:26 Bisacodyl 5 Mg Tablet Ec PO 10 mg BID MIHAELA Administration Citalopram Hydrobromide 10 mg 09/18/22 09:00 09/19/22 09:26 Citalopram Hydrobromide 10 Mg Tablet PO 10 mg DAILY MIHAELA Administration Clonazepam 1 mg 09/18/22 21:00 09/18/22 20:44 Clonazepam (*Crx) 0.5 Mg Tablet PO 1 mg HS MIHAELA Administration Docusate Sodium 100 mg 09/18/22 09:00 09/19/22 09:26 Docusate Sodium 100 Mg Capsule PO 100 mg DAILY MIHAELA Administration Lactated Ringer's 1,000 mls @ 125 mls/hr 09/17/22 15:15 09/19/22 13:35 Lr - Lactated Ringers Iv IV CONT 125 mls/hr .Q8H MIHAELA Administration Lidocaine 3 patch 09/19/22 09:00 09/19/22 09:26 Lidocaine 5% Patch TRANSDERM 3 patch DAILY MIHAELA Administration Ondansetron HCl 4 mg 09/17/22 15:14 09/17/22 20:22 Ondansetron Inj 4 Mg/2 Ml Vial IV PUSH 4 mg Q4H PRN Administration Nausea Polyethylene Glycol 17
--- NOTE | 2022-09-19 18:26 | PM.IMPN ---
Progress Note: A&P Assessment and Plan (1) Paroxysmal supraventricular tachycardia: Code(s): I47.1 - Supraventricular tachycardia Status: Acute (2) Hypotension: Code(s): I95.9 - Hypotension, unspecified Status: Acute (3) Constipation: Code(s): K59.00 - Constipation, unspecified Status: Acute (4) Overflow diarrhea: Code(s): R19.7 - Diarrhea, unspecified Status: Acute (5) Guaiac + stool: Code(s): R19.5 - Other fecal abnormalities Status: Acute (6) Chronic low back pain: Code(s): M54.50 - Low back pain, unspecified; G89.29 - Other chronic pain Status: Acute (7) Chronic left hip pain: Code(s): M25.552 - Pain in left hip; G89.29 - Other chronic pain Status: Acute (8) Generalized weakness: Code(s): R53.1 - Weakness Status: Acute (9) Dehydration: Code(s): E86.0 - Dehydration Status: Acute (10) Hyponatremia: Code(s): E87.1 - Hypo-osmolality and hyponatremia Status: Acute (11) Chronic kidney disease: Code(s): N18.9 - Chronic kidney disease, unspecified Status: Acute (12) Chronic obstructive pulmonary disease: Code(s): J44.9 - Chronic obstructive pulmonary disease, unspecified Status: Acute (13) Dementia: Code(s): F03.90 - Unspecified dementia, unspecified severity, without behavioral disturbance, psychotic disturbance, mood disturbance, and anxiety Status: Acute (14) Tobacco abuse: Code(s): Z72.0 - Tobacco use Status: Acute Plan The patient presented to the ED via EMS from home for evaluation of diarrhea and weakness. On arrival his blood pressure was 93/53 and he was he was tachycardic with an EKG showing SVT with a rate in the 140s. He was given fluid boluses with improvement in his blood pressure and worship of sinus rhythm. He is dry on exam and labs show mild hyponatremia; he will be judiciously hydrated overnight. His diarrhea today's most likely overflow diarrhea given a large volume of stool noted in the colon with distension of the rectum. He has some blood in his stool this morning and the stool was guaiac positive in the ED, may very well be due to hemorrhoids from ongoing constipation. Constipation has been worse recently, likely due to the addition of narcotics. Continue stool softeners and start MiraLax. His hemoglobin and hematocrit are a bit lower than what he typically runs and that will be repeated this evening to ensure it is stable. Antihypertensives on hold for now given low blood pressures on arrival. Continue pramipexole, citalopram, and hydrocodone as needed for pain. Consider other modalities to help with pain such as therapy, topicals, anti-inflammatories, or gabapentin or the like. PT/OT consulted as he is weak and is to the point where he is having difficulties even getting up out of bed. This weakness does not seem to be an acute onset and is more likely related to progressive weakness and debility as he is limited by his pain. Care coordination consulted as family members feel that he needs placement due to the fact that they are having difficulties caring for him at home. His home medications will be reviewed and resumed as appropriate. Labs, imaging, vital signs, an EKG were all personally reviewed. 09/19/2022 interval history:??77-year-old male was brought to the emergency with weakness and loose bowel movement however CT scan of abdomen showed fecal impaction seen by GI started the patient on stool softener and patient did BM still feels bloated KUB was done showed large amount of fecal, however later today patient did have large BM, will continue to monitor will have a PT OT evaluate the patient. Subjective Date/time seen: 09/19/22 18:26 The patient presented to the ED via EMS from home for evaluation of diarrhea and weakness. On arrival his blood pressure was 93/53 and he was he was tachycardic with an EKG showing SVT with a rate
[2022-09-19] MEDS: TAMSULOSIN HCL 0.4 MG CAPSULE PO (20:15)
[2022-09-19] MEDS: PRAMIPEXOLE 0.25 MG TABLET PO (20:15)
[2022-09-19] MEDS: clonazePAM (*CRX) 0.5 MG TABLET 1 MG PO (20:16)
[2022-09-20] VITALS (9 sets, daily range): BP systolic 142–176; BP diastolic 55–61; PULSE 55–76; RESP 16–18; TEMP 36.3–36.6; O2SAT 96–98
[2022-09-20 06:19] LABS: Hematocrit 32.2 % (42.0-52.0); Hemoglobin 10.9 g/dL (14.0-18.0); Mean Corpuscular HGB Conc 33.9 g/dl (32-36); Mean Corpuscular Hemoglobin 33.7 pg (26-34); Mean Corpuscular Volume 99.7 fl (80-100); Mean Platelet Volume 8.6 fl (7.4-10.4); Platelet Count Result 142 k/mm3 (150-375); Red Blood Count 3.23 M/mm3 (4.6-6.20); Red Cell Distribution Width 11.7 % (11.5-14.5)
[2022-09-20 06:38] LABS: Anion Gap 2 mmol/L (8-16); Blood Urea Nitrogen 21 mg/dL (9-20); Carbon Dioxide 30 mmol/L (22-30); Chloride 104 mmol/L (98-107); Estimated CRCL calculation 47 ml/min; Estimated Glomerular Filt Rate 58; Glucose 95 mg/dL (65-110); Magnesium 1.9 mg/dL (1.6-2.3); Potassium 3.9 mmol/L (3.4-5.0); Sodium 136 mmol/L (137-145)
[2022-09-20] MEDS: CITALOPRAM HYDROBROMIDE 10 MG TABLET PO (09:29)
[2022-09-20] MEDS: DOCUSATE SODIUM 100 MG CAPSULE PO (09:29)
[2022-09-20] MEDS: LIDOCAINE 5% PATCH 3 PATCH TRANSDERM (09:30)
[2022-09-20] MEDS: polyethylene glycoL 3350 17 GM POWD.PACK PO (09:30)
--- NOTE | 2022-09-20 12:54 | PM.IMPN ---
Progress Note: A&P Assessment and Plan (1) Paroxysmal supraventricular tachycardia: Code(s): I47.1 - Supraventricular tachycardia Status: Acute (2) Hypotension: Code(s): I95.9 - Hypotension, unspecified Status: Acute (3) Constipation: Code(s): K59.00 - Constipation, unspecified Status: Acute (4) Overflow diarrhea: Code(s): R19.7 - Diarrhea, unspecified Status: Acute (5) Guaiac + stool: Code(s): R19.5 - Other fecal abnormalities Status: Acute (6) Chronic low back pain: Code(s): M54.50 - Low back pain, unspecified; G89.29 - Other chronic pain Status: Acute (7) Chronic left hip pain: Code(s): M25.552 - Pain in left hip; G89.29 - Other chronic pain Status: Acute (8) Generalized weakness: Code(s): R53.1 - Weakness Status: Acute (9) Dehydration: Code(s): E86.0 - Dehydration Status: Acute (10) Hyponatremia: Code(s): E87.1 - Hypo-osmolality and hyponatremia Status: Acute (11) Chronic kidney disease: Code(s): N18.9 - Chronic kidney disease, unspecified Status: Acute (12) Chronic obstructive pulmonary disease: Code(s): J44.9 - Chronic obstructive pulmonary disease, unspecified Status: Acute (13) Dementia: Code(s): F03.90 - Unspecified dementia, unspecified severity, without behavioral disturbance, psychotic disturbance, mood disturbance, and anxiety Status: Acute (14) Tobacco abuse: Code(s): Z72.0 - Tobacco use Status: Acute Plan The patient presented to the ED via EMS from home for evaluation of diarrhea and weakness. On arrival his blood pressure was 93/53 and he was he was tachycardic with an EKG showing SVT with a rate in the 140s. He was given fluid boluses with improvement in his blood pressure and denominational of sinus rhythm. He is dry on exam and labs show mild hyponatremia; he will be judiciously hydrated overnight. His diarrhea today's most likely overflow diarrhea given a large volume of stool noted in the colon with distension of the rectum. He has some blood in his stool this morning and the stool was guaiac positive in the ED, may very well be due to hemorrhoids from ongoing constipation. Constipation has been worse recently, likely due to the addition of narcotics. Continue stool softeners and start MiraLax. His hemoglobin and hematocrit are a bit lower than what he typically runs and that will be repeated this evening to ensure it is stable. Antihypertensives on hold for now given low blood pressures on arrival. Continue pramipexole, citalopram, and hydrocodone as needed for pain. Consider other modalities to help with pain such as therapy, topicals, anti-inflammatories, or gabapentin or the like. PT/OT consulted as he is weak and is to the point where he is having difficulties even getting up out of bed. This weakness does not seem to be an acute onset and is more likely related to progressive weakness and debility as he is limited by his pain. Care coordination consulted as family members feel that he needs placement due to the fact that they are having difficulties caring for him at home. His home medications will be reviewed and resumed as appropriate. Labs, imaging, vital signs, an EKG were all personally reviewed. 09/20/2022 interval history:??77-year-old male was brought to the emergency with weakness and loose bowel movement however CT scan of abdomen showed fecal impaction seen by GI started the patient on stool softener and patient did BM on 09/19 was still felt bloated, KUB was done showed large amount of fecal, however later on 09/19 patient did have large BM, today patient states feeling better, family is [facility] the [facility], and wound care rn is working on finding a place for the patient, will continue to monitor will have a PT OT evaluate the patient. Subjective Date/time seen: 09/20/22 12:54 09/20/2022 interval
[2022-09-20] MEDS: LACTATED RINGERS 1,000 ML 125 ML IV CONT (16:47)
[2022-09-20] MEDS: HYDROcodone/acetaminophen (*CRX) 10-325 MG TABLET 1 TAB PO (16:47)
[2022-09-20] MEDS: PRAMIPEXOLE 0.25 MG TABLET PO (21:01)
[2022-09-20] MEDS: clonazePAM (*CRX) 0.5 MG TABLET 1 MG PO (21:01)
[2022-09-20] MEDS: TAMSULOSIN HCL 0.4 MG CAPSULE PO (21:01)
[2022-09-21] VITALS (9 sets, daily range): BP systolic 138–158; BP diastolic 54–100; PULSE 47–80; RESP 16–24; TEMP 36.2–36.6; O2SAT 90–97
[2022-09-21] MEDS: LACTATED RINGERS 1,000 ML 125 ML IV CONT ×3 (00:48→18:16)
[2022-09-21] MEDS: HYDROcodone/acetaminophen (*CRX) 10-325 MG TABLET 1 TAB PO (05:41)
[2022-09-21 06:05] LABS: Hematocrit 32.6 % (42.0-52.0); Mean Corpuscular HGB Conc 33.7 g/dl (32-36); Mean Corpuscular Hemoglobin 33.6 pg (26-34); Mean Corpuscular Volume 99.7 fl (80-100); Mean Platelet Volume 8.6 fl (7.4-10.4); Platelet Count Result 145 k/mm3 (150-375); Red Blood Count 3.27 M/mm3 (4.6-6.20); Red Cell Distribution Width 11.6 % (11.5-14.5); White Blood Count 6.1 K/mm3 (4.5-10.0)
[2022-09-21 06:09] LABS: Albumin Level 3.2 g/dL (3.5-5.1); Anion Gap 0 mmol/L (8-16); Blood Urea Nitrogen 18 mg/dL (9-20); Calcium 8.2 mg/dL (8.4-10.2); Carbon Dioxide 29 mmol/L (22-30); Chloride 102 mmol/L (98-107); Estimated CRCL calculation 52 ml/min; Estimated Glomerular Filt Rate > 60; Glucose 93 mg/dL (65-110); Magnesium 1.8 mg/dL (1.6-2.3); Phosphorus 2.9 mg/dL (2.5-4.5); Potassium 3.9 mmol/L (3.4-5.0); Sodium 131 mmol/L (137-145)
[2022-09-21] MEDS: polyethylene glycoL 3350 17 GM POWD.PACK PO (07:53)
[2022-09-21] MEDS: DOCUSATE SODIUM 100 MG CAPSULE PO (07:53)
[2022-09-21] MEDS: CITALOPRAM HYDROBROMIDE 10 MG TABLET PO (07:53)
[2022-09-21] MEDS: LIDOCAINE 5% PATCH 3 PATCH TRANSDERM (07:53)
--- NOTE | 2022-09-21 14:14 | PM.IMPN ---
Progress Note: A&P Assessment and Plan (1) Paroxysmal supraventricular tachycardia: Code(s): I47.1 - Supraventricular tachycardia Status: Acute (2) Hypotension: Code(s): I95.9 - Hypotension, unspecified Status: Acute (3) Constipation: Code(s): K59.00 - Constipation, unspecified Status: Acute (4) Overflow diarrhea: Code(s): R19.7 - Diarrhea, unspecified Status: Acute (5) Guaiac + stool: Code(s): R19.5 - Other fecal abnormalities Status: Acute (6) Chronic low back pain: Code(s): M54.50 - Low back pain, unspecified; G89.29 - Other chronic pain Status: Acute (7) Chronic left hip pain: Code(s): M25.552 - Pain in left hip; G89.29 - Other chronic pain Status: Acute (8) Generalized weakness: Code(s): R53.1 - Weakness Status: Acute (9) Dehydration: Code(s): E86.0 - Dehydration Status: Acute (10) Hyponatremia: Code(s): E87.1 - Hypo-osmolality and hyponatremia Status: Acute (11) Chronic kidney disease: Code(s): N18.9 - Chronic kidney disease, unspecified Status: Acute (12) Chronic obstructive pulmonary disease: Code(s): J44.9 - Chronic obstructive pulmonary disease, unspecified Status: Acute (13) Dementia: Code(s): F03.90 - Unspecified dementia, unspecified severity, without behavioral disturbance, psychotic disturbance, mood disturbance, and anxiety Status: Acute (14) Tobacco abuse: Code(s): Z72.0 - Tobacco use Status: Acute Plan The patient presented to the ED via EMS from home for evaluation of diarrhea and weakness. On arrival his blood pressure was 93/53 and he was he was tachycardic with an EKG showing SVT with a rate in the 140s. He was given fluid boluses with improvement in his blood pressure and confucianism of sinus rhythm. He is dry on exam and labs show mild hyponatremia; he will be judiciously hydrated overnight. His diarrhea today's most likely overflow diarrhea given a large volume of stool noted in the colon with distension of the rectum. He has some blood in his stool this morning and the stool was guaiac positive in the ED, may very well be due to hemorrhoids from ongoing constipation. Constipation has been worse recently, likely due to the addition of narcotics. Continue stool softeners and start MiraLax. His hemoglobin and hematocrit are a bit lower than what he typically runs and that will be repeated this evening to ensure it is stable. Antihypertensives on hold for now given low blood pressures on arrival. Continue pramipexole, citalopram, and hydrocodone as needed for pain. Consider other modalities to help with pain such as therapy, topicals, anti-inflammatories, or gabapentin or the like. PT/OT consulted as he is weak and is to the point where he is having difficulties even getting up out of bed. This weakness does not seem to be an acute onset and is more likely related to progressive weakness and debility as he is limited by his pain. Care coordination consulted as family members feel that he needs placement due to the fact that they are having difficulties caring for him at home. His home medications will be reviewed and resumed as appropriate. Labs, imaging, vital signs, an EKG were all personally reviewed. 09/21/2022 interval history:??77-year-old male was brought to the emergency with weakness and loose bowel movement however CT scan of abdomen showed fecal impaction seen by GI started the patient on stool softener and patient did BM on 09/19 was still felt bloated, KUB was done showed large amount of fecal, however later on 09/19 patient did have large BM, today patient states feeling better, feels some nausea, will continue colace and mirlax, family is trying to place the patient in group home, and healthcare science specialist is working on finding a place for the patient, will continue to monitor will have a PT OT evaluate the patient. Subjective Date/
[2022-09-21] MEDS: ONDANSETRON INJ 4 MG/2 ML VIAL IV PUSH (20:45)
[2022-09-21] MEDS: PRAMIPEXOLE 0.25 MG TABLET PO (20:47)
[2022-09-21] MEDS: TAMSULOSIN HCL 0.4 MG CAPSULE PO (20:47)
[2022-09-21] MEDS: clonazePAM (*CRX) 0.5 MG TABLET 1 MG PO (20:51)
[2022-09-22] VITALS: PULSE 58
[2022-09-22] MEDS: LACTATED RINGERS 1,000 ML 125 ML IV CONT ×2 (00:38→12:06)
[2022-09-22 03:50] VITALS: BP 122/48; PULSE 82; RESP 18; TEMP 35.8; O2SAT 93
[2022-09-22 04:00] VITALS: PULSE 40
[2022-09-22 05:53] LABS: Hematocrit 31.7 % (42.0-52.0); Hemoglobin 10.7 g/dL (14.0-18.0); Mean Corpuscular HGB Conc 33.8 g/dl (32-36); Mean Corpuscular Volume 100.6 fl (80-100); Mean Platelet Volume 9.1 fl (7.4-10.4); Platelet Count Result 110 k/mm3 (150-375); Red Blood Count 3.15 M/mm3 (4.6-6.20); Red Cell Distribution Width 11.7 % (11.5-14.5); White Blood Count 6.1 K/mm3 (4.5-10.0)
[2022-09-22 05:59] LABS: Albumin Level 3.1 g/dL (3.5-5.1); Anion Gap 1 mmol/L (8-16); Blood Urea Nitrogen 20 mg/dL (9-20); Calcium 8.2 mg/dL (8.4-10.2); Carbon Dioxide 28 mmol/L (22-30); Chloride 101 mmol/L (98-107); Estimated CRCL calculation 44 ml/min; Estimated Glomerular Filt Rate 53; Glucose 104 mg/dL (65-110); Magnesium 1.8 mg/dL (1.6-2.3); Potassium 4.1 mmol/L (3.4-5.0); Sodium 130 mmol/L (137-145)
[2022-09-22 08:00] VITALS: PULSE 39
[2022-09-22] MEDS: CITALOPRAM HYDROBROMIDE 10 MG TABLET PO (08:23)
[2022-09-22] MEDS: LIDOCAINE 5% PATCH 3 PATCH TRANSDERM (08:23)
[2022-09-22] MEDS: polyethylene glycoL 3350 17 GM POWD.PACK PO (08:23)
[2022-09-22] MEDS: DOCUSATE SODIUM 100 MG CAPSULE PO (08:23)
[2022-09-22 12:00] VITALS: PULSE 60
[2022-09-22] MEDS: HYDROcodone/acetaminophen (*CRX) 10-325 MG TABLET 1 TAB PO (12:06)
--- NOTE | 2022-09-22 13:53 | PM.DS ---
DS: Admitting Diagnosis Discharge Date 09/22/2022 Admitting Diagnosis Weakness and diarrhea. DS: Discharge Diagnosis Discharge Diagnosis (1) Paroxysmal supraventricular tachycardia: Code(s): I47.1 - Supraventricular tachycardia Status: Acute (2) Hypotension: Code(s): I95.9 - Hypotension, unspecified Status: Acute (3) Constipation: Code(s): K59.00 - Constipation, unspecified Status: Acute (4) Overflow diarrhea: Code(s): R19.7 - Diarrhea, unspecified Status: Acute (5) Guaiac + stool: Code(s): R19.5 - Other fecal abnormalities Status: Acute (6) Chronic low back pain: Code(s): M54.50 - Low back pain, unspecified; G89.29 - Other chronic pain Status: Acute (7) Chronic left hip pain: Code(s): M25.552 - Pain in left hip; G89.29 - Other chronic pain Status: Acute (8) Generalized weakness: Code(s): R53.1 - Weakness Status: Acute (9) Dehydration: Code(s): E86.0 - Dehydration Status: Acute (10) Hyponatremia: Code(s): E87.1 - Hypo-osmolality and hyponatremia Status: Acute (11) Chronic kidney disease: Code(s): N18.9 - Chronic kidney disease, unspecified Status: Acute (12) Chronic obstructive pulmonary disease: Code(s): J44.9 - Chronic obstructive pulmonary disease, unspecified Status: Acute (13) Dementia: Code(s): F03.90 - Unspecified dementia, unspecified severity, without behavioral disturbance, psychotic disturbance, mood disturbance, and anxiety Status: Acute (14) Tobacco abuse: Code(s): Z72.0 - Tobacco use Status: Acute Plan The patient presented to the ED via EMS from home for evaluation of diarrhea and weakness. On arrival his blood pressure was 93/53 and he was he was tachycardic with an EKG showing SVT with a rate in the 140s. He was given fluid boluses with improvement in his blood pressure and temple of sinus rhythm. He is dry on exam and labs show mild hyponatremia; he will be judiciously hydrated overnight. His diarrhea today's most likely overflow diarrhea given a large volume of stool noted in the colon with distension of the rectum. He has some blood in his stool this morning and the stool was guaiac positive in the ED, may very well be due to hemorrhoids from ongoing constipation. Constipation has been worse recently, likely due to the addition of narcotics. Continue stool softeners and start MiraLax. His hemoglobin and hematocrit are a bit lower than what he typically runs and that will be repeated this evening to ensure it is stable. Antihypertensives on hold for now given low blood pressures on arrival. Continue pramipexole, citalopram, and hydrocodone as needed for pain. Consider other modalities to help with pain such as therapy, topicals, anti-inflammatories, or gabapentin or the like. PT/OT consulted as he is weak and is to the point where he is having difficulties even getting up out of bed. This weakness does not seem to be an acute onset and is more likely related to progressive weakness and debility as he is limited by his pain. Care coordination consulted as family members feel that he needs placement due to the fact that they are having difficulties caring for him at home. His home medications will be reviewed and resumed as appropriate. Labs, imaging, vital signs, an EKG were all personally reviewed. 09/21/2022 interval history:??77-year-old male was brought to the emergency with weakness and loose bowel movement however CT scan of abdomen showed fecal impaction seen by GI started the patient on stool softener and patient did BM on 09/19 was still felt bloated, KUB was done showed large amount of fecal, however later on 09/19 patient did have large BM, today patient states feeling better, feels some nausea, will continue colace and mirlax, family is trying to place the patient in retirement, and healthcare associate is working on finding a pl
[2022-09-22 14:00] VITALS: BP 132/60; PULSE 46; RESP 18; TEMP 36.6; O2SAT 98
--- NOTE | 2022-09-22 16:56 | PC.NURSE ---
Career And Guidance Counselor has attempted to call report twice at [facility] in [place] with no response.
--- NOTE | 2022-09-22 17:25 | PC.NURSE ---
Certified Juvenile Probation Officer called facility and spoke with dye reel operator helper for a third time and has left two voicemails with the floor the nurse is accepting the patient on. Telegraphic Typewriter Mechanic is aware EMS is on the way and told me the room number is 105.
== END 2022-09-22 18:13 ==
LOC: ANHED 16:12 → ANH3MED 17:24
PROVIDERS: Emergency Medicine; Physician Assistant; Admitting Provider Internal Medicine; Emergency Provider Emergency Medicine; PCP Physician Assistant; Visit Provider Family Medicine
DX: I47.1 Supraventricular tachycardia (principal); I95.9 Hypotension, unspecified; K59.00 Constipation, unspecified; R19.7 Diarrhea, unspecified; R19.5 Other fecal abnormalities; K80.20 Calculus of gallbladder without cholecystitis without obstruction; I44.7 Left bundle-branch block, unspecified; R53.1 Weakness; G89.29 Other chronic pain; M54.50 Low back pain, unspecified; M16.12 Unilateral primary osteoarthritis, left hip; E86.0 Dehydration; I12.9 Hypertensive chronic kidney disease with stage 1 through stage 4 chronic kidney disease, or unspecified chronic kidney disease; N18.9 Chronic kidney disease, unspecified; J44.9 Chronic obstructive pulmonary disease, unspecified; E78.5 Hyperlipidemia, unspecified; F03.90 Unspecified dementia, unspecified severity, without behavioral disturbance, psychotic disturbance, mood disturbance, and anxiety; E87.1 Hypo-osmolality and hyponatremia; R60.0 Localized edema; M79.662 Pain in left lower leg; Z20.822 Contact with and (suspected) exposure to COVID-19; M19.90 Unspecified osteoarthritis, unspecified site; C61 Malignant neoplasm of prostate; M41.9 Scoliosis, unspecified; R94.31 Abnormal electrocardiogram [ECG] [EKG]; G25.81 Restless legs syndrome; F17.210 Nicotine dependence, cigarettes, uncomplicated; Z79.82 Long term (current) use of aspirin; Z79.891 Long term (current) use of opiate analgesic; Z79.899 Other long term (current) drug therapy; Z82.49 Family history of ischemic heart disease and other diseases of the circulatory system
CPT/HCPCS: 36415; 74018; 74177; 80053; 80069; 81001; 82550; 83605; 83690; 83735; 84443; 84484; 85014; 85018; 85025; 85027; 85610; 85730; 86140; 86850; 86900; 86901; 87040; 87637; 93005; 93970; 96361; 96365; 96375; 97110; 97161; 97166; 97530; 97535; 99285; A9270; C9113; G0378; J0131; J2405; J7030; J7060; J7120; Q9967

== ENCOUNTER 2023-11-02 16:17 | Emergency (ER) | payer MEDICARE, SELFPAY ==
--- NOTE | ~2023-11-02 | US_ITS ---
EXAMINATION: US venous doppler [facility] DATE: 11/02/2023 18:04 INDICATION: swelling . TECHNIQUE: Grayscale images without and with compression and Doppler images of the bilateral lower ex tremity veins were obtained. COMPARISON: 09/18/2022 FINDINGS: The right common femoral vein, profunda (deep) femoral vein, femoral vein, popliteal vein, peroneal v ein, posterior tibial veins, gastrocnemius vein, and greater saphenous vein are patent. The left common femoral vein, profunda (deep) femoral vein, femoral vein, popliteal vein, peroneal v ein, posterior tibial veins, gastrocnemius vein, and greater saphenous vein are patent. IMPRESSION: Patent bilateral lower extremity veins. No evidence of deep venous thrombosis. Reviewed, dictated and finalized at location K. LIFE AND GAME PROTECTOR
[2023-11-02 16:23] VITALS: BP 148/81; PULSE 76; RESP 18; TEMP 36.1; O2SAT 98
--- NOTE | 2023-11-02 17:09 | ED.GENADULT ---
HPI - General Adult General Chief complaint: Extremity Problem,Nontraumatic Stated complaint: bilateral lower leg swelling Time Seen by Provider: 11/02/23 17:09 Focused HPI: Andrew Starr is an 78 y/o male who presents with daughter PARK Morales lives in assisted living center and was sent here due to increased lower extremity edema for about 8 weeks and now he has a few wounds to the right lower leg and it's starting to weep and drain and the right is more swollen then the left and has erythema. GENERAL: well-nourished, and in no acute distress. HEAD: Normocephalic, atraumatic. CHEST: Clear to auscultation. ?No respiratory distress. HEART: Regular rate and rhythm.? NEURO: ?Alert and oriented x3. Patient screened in triage and initial orders placed.? ?Additional care and disposition to be based upon?diagnostic testing and treatment. Related Data Home Medications Medication Instructions Recorded Confirmed aspirin 81 mg tablet,delayed 81 mg PO DAILY 09/20/19 09/17/22 release (Adult Low Dose Aspirin) docusate sodium 100 mg capsule 100 mg PO DAILY 09/17/22 09/17/22 Allergies Allergy/AdvReac Type Severity Reaction Status Date / Time codeine AdvReac Unknown Nausea Verified 11/02/23 16:18 PENDING SALE TO [facility] Past Medical History Medical History Chronic kidney disease Chronic obstructive pulmonary disease Dementia Hyperlipidemia Hypertension Kidney stone Lumbar scoliosis Osteoarthritis Prostate cancer Currently under surveillance. Restless leg syndrome Tobacco dependence Surgical History Surgical History History of orthopedic surgery Bilateral elbow surgery. Status post left knee replacement Family History Family History Father Cerebrovascular accident Family history of coronary artery disease Alcoholism Mother Family history of coronary artery disease Sibling Diabetes mellitus Other Family history of cardiovascular disease Social History Social History Social History: The patient lives in [place]. He has smoked 1 to 2 packs of cigarettes per day since age of 7. He denies alcohol and drug abuse. His emergency contact is his daughter Roxy Adams. He wishes to be a full code. Smoking packs per day: 2 Smoking cigarettes per day: 40.0 Years smoked: 65 Smoking pack-years: 130.00 Smoking status: Current every day smoker Tobacco type: cigarettes Second hand tobacco smoke exposure: Yes Alcohol intake: never Substance use: never Lack of Transportation: No Lack of Food: Never True Current Housing: I Have Housing Concerned About Future Housing: No Difficulty Paying Gas/Electric Bills: No Difficulty Paying for Meds: No Currently Unemployed: No Education: High School Diploma/GED Difficulty w/ Childcare or Family Care: No Spiritual care concerns: No Course Vital Signs Vital signs: Vital Signs Temperature 36.1 C L 11/02/23 16:23 Pulse Rate 76 11/02/23 16:23 Respiratory Rate 18 11/02/23 16:23 Blood Pressure 148/81 H 11/02/23 16:23 Pulse Oximetry 98 11/02/23 16:23 Oxygen Delivery Room Air 11/02/23 16:23 Temperature 36.1 C L 11/02/23 16:23 Pulse Rate 76 11/02/23 16:23 Respiratory Rate 18 11/02/23 16:23 Blood Pressure 148/81 H 11/02/23 16:23 Pulse Oximetry 98 11/02/23 16:23 Oxygen Delivery Room Air 11/02/23 16:23 Medical Decision Making Vital Signs Vital Signs: Vital Signs Temperature 36.1 C L 11/02/23 16:23 Pulse Rate 76 11/02/23 16:23 Respiratory Rate 18 11/02/23 16:23 Blood Pressure 148/81 H 11/02/23 16:23 Pulse Oximetry 98 11/02/23 16:23 Oxygen Delivery Room Air 11/02/23 16:23 Temperature 36.1 C L 11/02/23 16:23 Pulse Rate 76 11/02/23 16:23 Respir
== END 2023-11-02 18:15 | disposition left against medical advice (07) ==
PROVIDERS: Emergency Provider Nurse Practitioner Family; PCP Family Medicine
DX: R60.0 Localized edema (principal); F03.90 Unspecified dementia, unspecified severity, without behavioral disturbance, psychotic disturbance, mood disturbance, and anxiety; I12.9 Hypertensive chronic kidney disease with stage 1 through stage 4 chronic kidney disease, or unspecified chronic kidney disease; N18.9 Chronic kidney disease, unspecified; G25.81 Restless legs syndrome; M19.90 Unspecified osteoarthritis, unspecified site; Z96.652 Presence of left artificial knee joint; Z87.442 Personal history of urinary calculi; F17.210 Nicotine dependence, cigarettes, uncomplicated
CPT/HCPCS: 93970; 99284